=== PATIENT | female | born 1970 | race African-American/Black ===

== ENCOUNTER 2016-09-03 10:58 | Emergency (ER) | payer MEDICARE, MEDICAID ==
[~2016-09-03] VITALS: Ht 160 cm; Wt 113.4 kg
[~2016-09-03 10:58] MED LIST: AMOXICILLIN500 MG ORAL; AMPICILLIN2 GM IV; ASPIR-LOW81 MG ORAL; CORTISPORIN EAR10 ML OTIC; COUMADIN10 MG ORAL; COUMADIN4 MG ORAL; DEPAKENE250 MG ORAL; FISH OIL 1,0001 EAC1 ORAL; FUROSEMIDE40 MG ORAL; GENTAMICIN80 MG/100 IV; GLUCOPHAGE500 MG PO; LASIX80 MG ORAL; LIPITOR10 MG ORAL; LOVENOX10 M3 SUBQ; METFORMIN HCL500 M1 ORAL; METOPROLOL TART25 MG ORAL; TEGRETOL200 MG ORAL; VIBRAMYCIN100 MG ORAL; [UNRECOGNIZED DRUG - OTHER]
[2016-09-03 12:40] LABS: INR 3.4 (0.9-1.1); PROTHROMBIN TIME 36.5 SEC (9.30-11.50)
[2016-09-03 13:08] VITALS: BP 151/96
--- NOTE | 2016-09-04 02:26 | Emergency Room Report ---
History of Present Illness General Chief Complaint: Lower Extremity Injury Source: Patient Present Illness HPI Patient slipped on bannana peel. Hit R knee. Bruising and pain. Pain 9/10, constant and worse with standing and bending knee. Aching. Not radiate. No calf tenderness. On coumadin for raplaced hear valves. No CP, SOB, other bleeding, dysuria, fevers, [place]. Allergies: Coded Allergies: No Known Allergies (Verified , 08/15/11) Patient History Past Medical History: see triage record Past Surgical History: other - heart valves Social History: Denies: alcohol use, drug use, smoking Social History Narrative with son Last Menstrual Period: na Reviewed Nursing Documentation: PMH: Agreed, PSxH: Agreed Nursing Documentation-PMH Past Medical History: No History, Except For Hx Cardiac Problems: Yes - triple bypass 2013 2 stents Hx Hypertension: Yes Hx Pacemaker: Yes Hx Asthma: No Hx COPD: No Hx Diabetes: Yes Hx Cancer: Yes - lymphoma Hx Gastrointestinal Problems: Yes Hx Dialysis: No Hx Neurological Problems: Yes Hx Cerebrovascular Accident: No Hx Seizures: Yes Hx Epilepsy: Yes - started 1971 Review of Systems All Other Systems: negative except mentioned in HPI Physical Exam Vital Signs Date Time Temp Pulse Resp B/P Pulse Ox O2 Delivery O2 Flow Rate FiO2 09/03/16 11:21 97.9 96 18 151/96 98 Room Air Sp02 EP Interpretation: reviewed, normal General Appearance: well appearing, no apparent distress, GCS 15 Head: normocephalic, atraumatic Eyes: bilateral eye PERRL, bilateral eye normal inspection ENT: hearing grossly normal, normal voice, moist mucus membranes Neck: full range of motion, supple Respiratory: chest non-tender, lungs clear, normal breath sounds Cardiovascular #1: no edema, other - metalic valve click Cardiovascular #2: 2+ radial (L) Gastrointestinal: normal inspection, non tender Musculoskeletal: back normal, digits/nails normal, gait/station normal - with knee pain, normal range of motion, other - knee ligaments stable, no effusion, patella TTP where ecchymoses is Neurologic: alert, normal gait, grossly normal Psychiatric: mood/affect normal Skin: other - ecchymoses R knee Medical Decision Making Diagnostic Impression: Primary Impression: Contusion of right knee Qualified Codes: S80.01XA - Contusion of right knee, initial encounter Additional Impressions: Excess anticoagulation Hematoma ER Course Patient post fall and knee injury on coumadin. Ddx: contusion, hematoma, ligament injury. Based on exam, fracture unlikely. Needs to have INR checked. She declines pain medicine. She states INR needs to be 2.5 to 3. Walter applied by tech. Position excellent with improvement. Neurovasc normal as checked by me. Patient stable for outpatient observation and treatment. Laboratory Tests Test 09/03/16 12:00 Prothrombin Time 36.5 SEC (9.30-11.50) H Prothrombin Time INR 3.4 (0.9-1.1) H Last Vital Signs Date Time Temp Pulse Resp B/P Pulse Ox O2 Delivery O2 Flow Rate FiO2 09/03/16 13:08 97.9 96 18 151/96 98 Room Air Status: improved Disposition: HOME, SELF-CARE Condition: Improved Patient Instructions: ERIKA for Routine Care of Injuries Additional Instructions: Hold coumadin tonight. Call your engine designer tomorrow. Elevate the knee. Nikolai Callaway M.D. Sep 04, 2016 02:26
== END 2016-09-03 13:08 | disposition home or self-care (01) ==
LOC: EMR 12:00
DX: S80.01XA Contusion of right knee, initial encounter (principal); W18.31XA Fall on same level due to stepping on an object, initial encounter; Y92.9 Unspecified place or not applicable; R79.1 Abnormal coagulation profile; Z79.01 Long term (current) use of anticoagulants; Z95.2 Presence of prosthetic heart valve; I10 Essential (primary) hypertension; E11.9 Type 2 diabetes mellitus without complications; Z95.0 Presence of cardiac pacemaker; Z95.1 Presence of aortocoronary bypass graft; Z85.72 Personal history of non-Hodgkin lymphomas
CPT/HCPCS: 29530; 36415; 85610; 99282